=== PATIENT | male | born 1995 | race African-American/Black ===

== ENCOUNTER 2020-01-05 11:21 | Emergency (ER) | payer SELFPAY ==
[2020-01-05 11:55] VITALS: BP 108/62; PULSE 80; RESP 16; TEMP 37.3; O2SAT 100
--- NOTE | 2020-01-05 12:21 | ED.FEMALEGU ---
HPI - Female Genitourinary General Chief complaint: Urogenital-Male Stated complaint: Chalmy[place] Time Seen by Provider: 01/05/20 12:16 Source: patient and RN notes reviewed Mode of arrival: ambulatory Limitations: no limitations History of Present Illness HPI Narrative: Patient presents today with a one-week history of hess/white penile discharge with one episode of dysuria initially. Denies hematuria, penile pain, scrotal pain or swelling. Patient was notified 4 days ago by a sexual partner that they are positive for chlamydia. MD elicited complaint: other (STD exposure, penile discharge) Related Data Home Medications Medication Instructions Recorded Confirmed No Home Medications 01/05/20 01/05/20 Allergies Allergy/AdvReac Type Severity Reaction Status Date / Time shellfish derived Allergy Intermediate Swelling Verified 01/05/20 12:22 Review of Systems Review of Systems: Narrative: CONSTITUTIONAL: Denies body aches, fever, chills, or sweats. EYES: Denies visual changes, redness, or discharge. ENT: Denies rhinorrhea, congestion, sore throat, or otalgia. CARDIOVASCULAR: Denies chest pain, palpitations, or edema. RESPIRATORY: Denies cough or dyspnea. GASTROINTESTINAL: Denies abdominal pain, nausea, vomiting, or diarrhea. GENITOURINARY: Denies hematuria. Dysuria x1. Penile discharge SKIN: Denies rash, itching, or wounds. MUSCULOSKELETAL: Denies back pain, joint pain, or myalgia. NEUROLOGIC: Denies headache, numbness, tingling, or weakness. PSYCH: Denies depression or anxiety. PMFSH Comments At time of signature, I have reviewed and agree with nursing past medical, surgical, social and family history unless otherwise noted. Please see nursing chart for further information. There is no relevant family history pertinent to the presenting complaint Exam Narrative: Exam Narrative: GENERAL: Well-appearing, well-nourished, and in no acute distress. HEAD: Normocephalic, atraumatic. EYES: EOMI. No redness or drainage. Conjunctivae normal. ENT: Mucous membranes pink and moist. NECK: Normal AROM. Supple. No lymphadenopathy. CHEST: No respiratory distress. : Chaperoned by RN. No active urethral discharge. No redness or swelling of the penis. No redness or swelling of the scrotum. Testicles are nontender. EXTREMITIES: Normal range of motion. No edema. SKIN: Warm, dry, no rash. NEURO: No focal deficits. Alert and oriented x3. Gait steady. PSYCH: Normal affect. No signs of depression or anxiety. Course Vital Signs Vital signs: Vital Signs Temperature 99.2 F 01/05/20 11:55 Pulse Rate 80 01/05/20 11:55 Respiratory Rate 16 01/05/20 11:55 Blood Pressure 108/62 01/05/20 11:55 Pulse Oximetry 100 01/05/20 11:55 Temperature 99.2 F 01/05/20 11:55 Pulse Rate 80 01/05/20 11:55 Respiratory Rate 16 01/05/20 11:55 Blood Pressure 108/62 01/05/20 11:55 Pulse Oximetry 100 01/05/20 11:55 Reviewed MDM - Female Genitourinary Differential Diagnosis Differential diagnosis: Likely urinary tract infection and other (Gonorrhea, chlamydia) Lab Data Labs: Urine Characteristics Clear Critical Care Time Critical Care Time Critical Care Time: No Discharge Plan Discharge Clinical Impression: Contact with and (suspected) exposure to infections with a predominantly sexual mode of transmission Patient Disposition: Home, Self-Care Condition: Stable Instructions: Chlamydia (ED) Additional Instructions: You have been tested and treated for gonorrhea and chlamydia with azithromycin and Rocephin. If your test come back positive in 5 to 7 days, you should need no further treatment. Do not have intercourse for at least 1 week. If your test come back positive, your partners need to be treated as well. Follow-up with the health department if symptoms do not improve. Patient Language: Kinyarwanda Prescriptions: No Action No Home Medications RF: 0 Foll
[2020-01-05] MEDS: LIDOCAINE HCL 1% LOCAL INJ 20 ML VIAL IM (12:29)
[2020-01-05] MEDS: AZITHROMYCIN 250 MG TABLET 1000 MG PO (12:29)
[2020-01-05] MEDS: cefTRIAXone 250 MG VIAL IM (12:29)
== END 2020-01-05 12:50 | disposition home or self-care (01) ==
PROVIDERS: Emergency Provider Nurse Practitioner
DX: Z20.2 Contact with and (suspected) exposure to infections with a predominantly sexual mode of transmission (principal)
CPT/HCPCS: 87491; 87591; 87661; 96372; 99203; A9270; G0463; J0696